=== PATIENT | male | born 1945 | race Hispanic/Latino ===

== ENCOUNTER 2017-11-05 08:33 | Day surgery (SDC) | payer BC ==
[2014-07-11 09:55] VITALS: BMI 35.5
[2017-11-05] MEDS ORDERED: Propofol 10 mg/ml Inj (20 ML) ONE (11:26)
[2017-11-05] MEDS ORDERED: Midazolam 2 MG/2 ML VIAL ONE (11:27)
[2017-11-05] MEDS ORDERED: Sodium Chloride 0.9% 1,000 ML IV SCH (12:15)
[2017-11-05 12:31] VITALS: RESP 16
[2017-11-05 12:46] VITALS: O2SAT 100
[2017-11-05 12:56] VITALS: BP 123/84; PULSE 60; TEMP 97.7
== END 2017-11-05 13:48 | disposition home or self-care (01) ==
LOC: ENDO 08:33
PROVIDERS: ATTEND Internal Medicine Gastroenterology
DX: K21.0 Gastro-esophageal reflux disease with esophagitis (principal); K44.9 Diaphragmatic hernia without obstruction or gangrene
CPT/HCPCS: 43239; 88305; 88342; J2250; J2704; J3010; J7030; J7040